=== PATIENT | female | born 1990 | race Hispanic/Latino ===

== ENCOUNTER 2019-10-21 11:30 | Inpatient (IN) | payer MEDICAID ==
[~2019-10-21] VITALS: Ht 167.6 cm; Wt 111.6 kg
[2019-10-21] MEDS ORDERED: LACTATED RINGERS 1000ML 1,000 ML IV PRN (12:38)
[2019-10-21] MEDS ORDERED: AMPICILLIN 2GM+NS 100ML 100 ML IV SCH (12:45)
[2019-10-21 13:51] LABS: HEMATOCRIT 35.5 % (36-48); MEAN CORPUSCULAR HEMOGLOBIN 32.4 pg (27.0-33.0); MEAN CORPUSCULAR HGB CONC 34.4 g/dL (32.0-36.0); MEAN CORPUSCULAR VOLUME 94.2 fL (79-99); RED BLOOD CELL COUNT(AUTO) 3.77 MIL/uL (4.00-5.50); RED CELL DISTRIBUTION WIDTH 13.1 % (11.0-15.5); WHITE BLOOD COUNT (AUTO) 10.2 K/uL (4.8-10.8)
[2019-10-21] MEDS ORDERED: AMPICILLIN 2GM+NS 100ML 100 ML IV ONE (14:34)
[2019-10-21 18:23] LABS: INR 0.88 (0.85-1.15); PARTIAL THROMBOPLASTIN TIME 28.4 SEC (26.3-35.5); PROTHROMBIN TIME 9.6 SEC (9.6-11.6)
[2019-10-21 18:24] LABS: ALBUMIN 2.6 g/dL (3.5-5.0); BILIRUBIN,TOTAL 0.2 mg/dL (0.2-1.0); CREATININE 0.6 mg/dL (0.5-1.5); TOTAL PROTEIN, SERUM 6.7 g/dL (6.0-8.3); URIC ACID 3.3 mg/dL (2.6-7.2)
[2019-10-21] MEDS: AMPICILLIN 1GM+NS 50ML 50 ML IV SCH ×2 (18:30→22:19)
[2019-10-21 21:34] VITALS: BP 145/80
[2019-10-21] MEDS ORDERED: PREN-196 PO (21:37)
[2019-10-22] MEDS ORDERED: LACTATED RINGERS 500 ML 500 ML IV PRN (00:45)
[2019-10-22] MEDS ORDERED: ACETAMINOPHEN 325 MG TAB PO PRN (00:45)
[2019-10-22] MEDS ORDERED: ROPIVACAINE 0.2% 100ML VIAL 100 ML EP SCH (00:45)
[2019-10-22] MEDS ORDERED: NALOXONE HCL 0.4 MG/1 ML ML IV PRN (00:45)
[2019-10-22] MEDS ORDERED: EPHEDRINE SULFATE 50 MG/ML AMPULE IVP PRN (00:45)
[2019-10-22] MEDS ORDERED: BUTORPHANOL TARTRATE 2 MG/ML IVP PRN (00:45)
[2019-10-22] MEDS: AMPICILLIN 1GM+NS 50ML 50 ML IV SCH ×2 (02:23→06:18)
[2019-10-22] MEDS ORDERED: OXYTOCIN-LR 20 UNITS/1000 ML 1,000 ML IV ONE (04:38)
[2019-10-22] MEDS ORDERED: OXYTOCIN 10 USP UNITS/ML 20 UNIT in LACTATED RINGERS 1000ML 1,000 ML IV SCH (05:00)
[2019-10-22] MEDS ORDERED: CALDOLOR 800MG+NS 250ML 250 ML IV PRN (15:15)
[2019-10-22] MEDS ORDERED: LACTATED RINGERS 1000ML 1,000 ML IV SCH (15:15)
[2019-10-22] MEDS ORDERED: CEFAZOLIN SODIUM 1 GM VIAL IVP PRN (15:15)
[2019-10-22] MEDS ORDERED: METHYLERGONOVINE MALEATE 0.2 MG/1 ML ML ONE (16:05)
[2019-10-22] MEDS ORDERED: LIDOCAINE HCL-MPF 2% 5ML VIAL ONE (16:31)
[2019-10-22] MEDS ORDERED: CEFAZOLIN SODIUM 1 GM VIAL IVP ONE (16:35)
[2019-10-22] MEDS ORDERED: KETAMINE HCL 100 MG/ML 5ML VIAL IJ ONE (16:43)
[2019-10-22] MEDS ORDERED: FENTANYL CITRATE PF 50 MCG/1 ML 2ML VIAL ONE (16:44)
[2019-10-22] MEDS ORDERED: DURAMORPH PF1 MG/ML 10ML AMP IV ONE (16:44)
[2019-10-22] MEDS ORDERED: ONDANSETRON HCL 4 MG/2 ML VIAL ONE (16:50)
[2019-10-22] MEDS ORDERED: PHENYLEPHRINE HCL 10 MG/ML 1ML VIAL IV ONE (17:04)
[2019-10-22] MEDS ORDERED: OXYTOCIN 10 UNIT/1ML 10ML VIAL ONE (17:04)
[2019-10-22] MEDS ORDERED: DEXTROSE 5 %-0.45 % NACL 1,000 ML IV PRN (19:00)
[2019-10-22] MEDS ORDERED: SODIUM CHLORIDE 0.9% 10 ML VIAL IVP PRN (19:00)
[2019-10-22] MEDS ORDERED: OXYTOCIN-LR 20 UNITS/1000 ML 1,000 ML IV PRN (19:00)
[2019-10-22] MEDS ORDERED: MEPERIDINE-PF 75 MG/ML SYG IM PRN (19:00)
[2019-10-22] MEDS ORDERED: PROMETHAZINE HCL 25 MG/ML 1ML AMPULE IM PRN (19:00)
[2019-10-22 19:26] VITALS: BP 134/70
--- NOTE | 2019-10-22 19:26 | NUR ---
REPORT RECEIVED FROM Kermit KENNEDY RN; Patient came in via bed accompanied by Kermit Garcia, [employer]. and Greg Teresa RN, and . She has an IV of LR with 20 units Pitocin infusing well regulated at 150 ml/hour. DAIRY GRAZER pump continued till the bag is consumed as per report. Patient and oriented to the room, Call light given. Plan of care discussed they both verbalizes understanding.
--- NOTE | 2019-10-22 22:05 | NUR ---
Merlyn care done with small Lochia Rubra, Fundus firm at the level of the umbilicus.
[2019-10-22] MEDS ORDERED: ONDANSETRON HCL 4 MG/2 ML VIAL IVP PRN (23:15)
[2019-10-22] MEDS ORDERED: DiphenhydrAMINE HCL 50 MG/ML VIAL IV PRN (23:15)
[2019-10-23 00:13] VITALS: BP 132/76
--- NOTE | 2019-10-23 00:13 | NUR ---
Activity: Patient sitting in bed SCD's off per patient request claimed, " I fell so hot can this SCD's off." Scd's taken off. Patient sitting at the edge of the bed and dangle her legs.
[2019-10-23] MEDS: CALDOLOR 800MG+NS 250ML 250 ML IV SCH ×2 (02:49→11:27)
[2019-10-23 03:51] VITALS: BP 133/77
[2019-10-23] MEDS ORDERED: LORATADINE/PSEUDOEPHED 5/120 MG 1 EACH TAB.SR.12H PO PRN (06:33)
[2019-10-23 06:43] LABS: HEMATOCRIT 30.3 % (36-48); MEAN CORPUSCULAR HEMOGLOBIN 32.5 pg (27.0-33.0); MEAN CORPUSCULAR HGB CONC 34.7 g/dL (32.0-36.0); MEAN CORPUSCULAR VOLUME 93.8 fL (79-99); RED BLOOD CELL COUNT(AUTO) 3.23 MIL/uL (4.00-5.50); RED CELL DISTRIBUTION WIDTH 13.2 % (11.0-15.5); WHITE BLOOD COUNT (AUTO) 16.2 K/uL (4.8-10.8)
--- NOTE | 2019-10-23 06:55 | NUR ---
Starkey; Starkey Catheter taken out patient advice to call for help if needed, start to ambulate. Epidural Catheter taken out tip of the Catheter is intact.
[2019-10-23 07:18] LABS: HEPATITIS Bs ANTIGEN SCREEN P Negative (Negative)
[2019-10-23 07:27] VITALS: BP 128/76
[2019-10-23] MEDS ORDERED: SIMETHICONE 80 MG TAB.CHEW PO PRN (08:45)
[2019-10-23] MEDS ORDERED: LANOLIN 30GM OINTMENT TP PRN (08:45)
[2019-10-23] MEDS ORDERED: BISACODYL 10 MG SUPP.RECT RC PRN (08:45)
[2019-10-23] MEDS ORDERED: HYDROCODONE/ACETAMINOPHEN 5/325 MG TAB PO PRN (08:45)
[2019-10-23] MEDS ORDERED: ACETAMINOPHEN-CODEINE 300/30MG TAB PO PRN (08:45)
[2019-10-23] MEDS ORDERED: DIPH,PERTUSS(ACELL),TET VAC/PF 0.5 ML VIAL IM SCH (08:45)
[2019-10-23] MEDS ORDERED: ACETAMINOPHEN EXTRA STRENGTH 500 MG TABLET PO PRN (08:45)
[2019-10-23] MEDS ORDERED: DOCUSATE SODIUM 100 MG CAP PO SCH (09:00)
[2019-10-23 11:14] VITALS: BP 121/78
--- NOTE | 2019-10-23 13:30 | NUR ---
pt is dismissed, verbal and written discharge instructions given, pls refer to exit care. informed of the follow up appointment, prescription given. informed to call the doctor for further questions. pt voiced understanding to all things discussed. Awaiting baby's discharge. Addendum: 10/23/19 at 1358 by EDMUND BETH RN Amended: Links added.
[2019-10-23 16:41] VITALS: BP 132/75
[2019-10-23] MEDS ORDERED: IBUPROFEN 800 MG TAB PO SCH (19:00)
--- NOTE | 2019-10-23 19:20 | NUR ---
pt is dismissed with baby in stable condition, brought to private car by Yasmin garcia Addendum: 10/23/19 at 1924 by EDMUND BETH RN Amended: Links added.
== END 2019-10-23 19:20 | disposition home or self-care (01) | DRG 540 ==
LOC: EDH 11:30 → LDH 11:47 → OBSVTOIN 11:47 → WSH 10-22 19:15
PROVIDERS: ADMIT Obstetrics & Gynecology; ATTEND Obstetrics & Gynecology
PROC: 3E0234Z Introduction of Serum, Toxoid and Vaccine into Muscle, Percutaneous Approach (ICD-10-PCS; 2019-10-22)
PROC: 10D00Z1 Extraction of Products of Conception, Low, Open Approach (ICD-10-PCS; principal; 2019-10-22 16:30)
DX: O42.92 Full-term premature rupture of membranes, unspecified as to length of time between rupture and onset of labor (principal); Z3A.38 38 weeks gestation of pregnancy; Z37.0 Single live birth; O99.214 Obesity complicating childbirth; E66.9 Obesity, unspecified; O62.2 Other uterine inertia; O77.0 Labor and delivery complicated by meconium in amniotic fluid; Z23 Encounter for immunization
CPT/HCPCS: 36415; 59510; 76805; 80053; 84550; 85027; 85384; 85610; 85730; 86592; 86701; 86850; 86900; 86901; 87340; 87390; 90715; 96360; 96361; A4314; A4344; A4606; G0378; J0290; J0595; J0690; J1741; J2210; J2274; J2370; J2405; J2590; J2795; J3010; J3490; J7120

== ENCOUNTER 2020-11-14 13:27 | Inpatient (IN) | payer MEDICAID ==
[~2020-11-14] VITALS: Ht 170.2 cm; Wt 108.0 kg
[~2020-11-14 13:27] MED LIST: PREN-196 PO
[2020-11-14 15:35] VITALS: BP 116/62
[2020-11-14] MEDS ORDERED: METOCLOPRAMIDE 10 MG/2 ML VIAL IVP PRN (16:30)
[2020-11-14] MEDS ORDERED: CEFAZOLIN SODIUM 1 GM VIAL IVP PRN (16:30)
[2020-11-14] MEDS: LACTATED RINGERS 1000ML 1,000 ML IV SCH ×2 (16:30→19:45)
[2020-11-14] MEDS ORDERED: CEFAZOLIN SODIUM 100 GM IV PRN (16:30)
[2020-11-14] MEDS ORDERED: CEFAZOLIN SODIUM 1 GM VIAL ONE ×2 (16:48→17:05)
[2020-11-14 16:52] LABS: HEMATOCRIT 33.2 % (36-48); MEAN CORPUSCULAR HEMOGLOBIN 31.3 pg (27.0-33.0); MEAN CORPUSCULAR HGB CONC 33.1 g/dL (32.0-36.0); MEAN CORPUSCULAR VOLUME 94.3 fL (79-99); RED BLOOD CELL COUNT(AUTO) 3.52 MIL/uL (4.00-5.50); RED CELL DISTRIBUTION WIDTH 13.2 % (11.0-15.5); WHITE BLOOD COUNT (AUTO) 7.1 K/uL (4.8-10.8)
[2020-11-14] MEDS ORDERED: MORPHINE PF 100MG/10ML AMP IV ONE (18:42)
[2020-11-14] MEDS ORDERED: FENTANYL CITRATE PF 50 MCG/1 ML 2ML VIAL ONE ×2 (18:42→19:26)
[2020-11-14] MEDS ORDERED: OXYTOCIN 10 UNIT/1ML 10ML VIAL ONE (19:20)
[2020-11-14] MEDS ORDERED: ONDANSETRON 4MG INJ ONE (19:25)
[2020-11-14] MEDS ORDERED: MEPERIDINE-PF 75 MG/ML SYG IM PRN (19:30)
[2020-11-14] MEDS ORDERED: PROMETHAZINE HCL 25 MG/ML 1ML AMPULE IM PRN (19:30)
[2020-11-14] MEDS ORDERED: DEXTROSE 5 %-0.45 % NACL 1,000 ML IV PRN (19:30)
[2020-11-14] MEDS ORDERED: OXYTOCIN-LR 20 UNITS/1000 ML 1,000 ML IV PRN (19:30)
[2020-11-14] MEDS ORDERED: 0.9%NACL 10ML VIAL IVP PRN (19:30)
[2020-11-14] MEDS: LACTATED RINGERS 1000ML 1,000 ML IV PRN (19:47)
[2020-11-14] MEDS ORDERED: PHENYLEPHRINE HCL 10 MG/ML 1ML VIAL IV ONE (19:51)
[2020-11-14 21:39] VITALS: BP 124/76
[2020-11-14] MEDS ORDERED: PREN1TAB80 PO (21:46)
[2020-11-14 22:00] VITALS: BP 113/65
[2020-11-14 23:23] VITALS: BP 119/62
[2020-11-15] MEDS: LACTATED RINGERS 1000ML 1,000 ML IV PRN (02:38)
[2020-11-15 03:05] VITALS: BP 120/71
[2020-11-15 06:40] LABS: RAPID PLASMA REAGIN NONREACTIVE (NONREACTIVE)
[2020-11-15 06:43] LABS: HEMATOCRIT 32.7 % (36-48); MEAN CORPUSCULAR HEMOGLOBIN 31.4 pg (27.0-33.0); MEAN CORPUSCULAR VOLUME 95.1 fL (79-99); RED BLOOD CELL COUNT(AUTO) 3.44 MIL/uL (4.00-5.50); RED CELL DISTRIBUTION WIDTH 13.1 % (11.0-15.5); WHITE BLOOD COUNT (AUTO) 8.4 K/uL (4.8-10.8)
[2020-11-15 07:50] VITALS: BP 125/71
[2020-11-15] MEDS ORDERED: LANOLIN 30GM OINTMENT TP PRN (08:30)
[2020-11-15] MEDS ORDERED: ACETAMINOPHEN WITH CODEINE 1 TAB TAB PO PRN (08:30)
[2020-11-15] MEDS ORDERED: ACETAMINOPHEN 500 MG TABLET PO PRN (08:30)
[2020-11-15] MEDS ORDERED: HYDROCODONE/ACETAMINOPHEN 5/325 MG TAB PO PRN (08:30)
[2020-11-15] MEDS ORDERED: BISACODYL 10 MG SUPP.RECT RC PRN (08:30)
[2020-11-15] MEDS ORDERED: DOCUSATE SODIUM 100 MG CAP PO SCH (09:00)
[2020-11-15] MEDS: SIMETHICONE 80 MG TAB.CHEW PO PRN ×2 (09:42→12:40)
[2020-11-15] MEDS: IBUPROFEN 800 MG TAB PO SCH ×2 (09:46→17:04)
[2020-11-15 12:00] VITALS: BP 130/70
[2020-11-15] MEDS ORDERED: ACET1TAB25 PO (14:28)
[2020-11-15 16:00] VITALS: BP 140/70
[2020-11-15 19:40] VITALS: BP 130/67
[2020-11-16 19:09] LABS: HEPATITIS Bs ANTIGEN SCREEN P Negative (Negative)
== END 2020-11-15 20:40 | disposition home or self-care (01) | DRG 540 ==
LOC: EDH 13:27 → LDH 13:43 → OBSVTOIN 13:43 → WSH 22:00
PROVIDERS: ADMIT Obstetrics & Gynecology; ATTEND Obstetrics & Gynecology
PROC: 10D00Z1 Extraction of Products of Conception, Low, Open Approach (ICD-10-PCS; principal; 2020-11-14 19:14)
DX: O34.211 Maternal care for low transverse scar from previous cesarean delivery (principal); N73.6 Female pelvic peritoneal adhesions (postinfective); O99.892 Other specified diseases and conditions complicating childbirth; Z37.0 Single live birth; Z3A.38 38 weeks gestation of pregnancy
CPT/HCPCS: 36415; 59510; 76805; 82120; 85027; 86592; 86701; 86850; 86900; 86901; 87340; 87390; A4314; A4344; G0378; J0690; J2175; J2274; J2370; J2405; J2550; J2590; J2765; J3010; J7120

== ENCOUNTER 2021-01-23 06:35 | Day surgery (SDC) | payer MEDICAID ==
[2021-01-20] MEDS: CEFAZOLIN SODIUM 2 GM VIAL IV SCH (06:50)
[2021-01-20 10:21] LABS: BASOPHILS % (AUTO) 0.4 % (0.0-5.0); EOSINOPHILS % (AUTO) 1.1 % (0.0-8.0); HEMATOCRIT 38.7 % (36-48); MEAN CORPUSCULAR HEMOGLOBIN 29.3 pg (27.0-33.0); MEAN CORPUSCULAR HGB CONC 32.3 g/dL (32.0-36.0); MEAN CORPUSCULAR VOLUME 90.6 fL (79-99); MONOCYTES % (AUTO) 5.4 % (3.0-13.0); NEUTROPHILS % (AUTO) 64.9 % (40.0-77.0); PLATELET COUNT (AUTO) 245 K/uL (130-400); RED BLOOD CELL COUNT(AUTO) 4.27 MIL/uL (4.00-5.50); RED CELL DISTRIBUTION WIDTH 12.3 % (11.0-15.5); WHITE BLOOD COUNT (AUTO) 4.6 K/uL (4.8-10.8)
[~2021-01-23] VITALS: Ht 170.2 cm; Wt 96.0 kg
[2021-01-23] VITALS (17 sets, daily range): BP systolic 115–129; BP diastolic 55–74
[2021-01-23] MEDS ORDERED: LACTATED RINGERS 1000ML 1,000 ML IV ONE (06:59)
[2021-01-23] MEDS ORDERED: BUPIVACAINE/PF 0.25% 30ML VIAL IJ ONE ×2 (07:23→08:29)
[2021-01-23] MEDS ORDERED: CEFAZOLIN SODIUM 1 GM VIAL ONE (07:54)
[2021-01-23] MEDS ORDERED: PROPOFOL 10 MG/ML 20ML VIAL IV ONE (08:25)
[2021-01-23] MEDS ORDERED: MIDAZOLAM HCL 1 MG/ML 2ML VIAL ONE (08:25)
[2021-01-23] MEDS ORDERED: FENTANYL CITRATE PF 50 MCG/1 ML 2ML VIAL ONE ×3 (08:26→09:57)
[2021-01-23] MEDS ORDERED: ONDANSETRON 4MG INJ ONE (08:33)
[2021-01-23] MEDS ORDERED: MEPERIDINE-PF 25 MG/ML SYG ONE ×3 (08:35→10:32)
[2021-01-23] MEDS ORDERED: ROCURONIUM 10MG/1ML SYR 10 MG/ML ML ONE (08:40)
[2021-01-23] MEDS: CEFAZOLIN SODIUM 2 GM VIAL IV SCH (09:00)
[2021-01-23] MEDS ORDERED: DEXAMETHASONE SOD PHOSPHATE 10MG/ML 1ML VIAL ONE (09:32)
[2021-01-23] MEDS ORDERED: GLYCOPYRROLATE 1 MG/5 ML SYRINGE ONE (09:51)
[2021-01-23] MEDS ORDERED: NEOSTIGMINE 5MG/5ML SYR IV ONE (09:51)
[2021-01-23] MEDS ORDERED: KETOROLAC 30MG VIAL (30MG/ML) ONE (09:53)
== END 2021-01-23 11:40 | disposition home or self-care (01) ==
LOC: DAH 06:35 → EDSTATUS 09:30 → DAH 11:40
PROVIDERS: ATTEND Obstetrics & Gynecology
DX: Z30.2 Encounter for sterilization (principal); Z20.822 Contact with and (suspected) exposure to COVID-19; E66.9 Obesity, unspecified; N73.6 Female pelvic peritoneal adhesions (postinfective); Z98.890 Other specified postprocedural states; Z90.89 Acquired absence of other organs
CPT/HCPCS: 36415 ×2; 58671; 84703; 85025; 86850 ×2; 86900 ×2; 86901 ×2; 87635; A4215 ×2; A4221; A4222; A4223; A4351; A4510; A4606; A4663; A4930; A6260; C1769 ×4; G0168; J0690; J1100; J1885; J2175 ×3; J2250; J2405; J2710; J3010 ×3; J3490 ×2; J7120; S0020; J2704